=== PATIENT | male | born 1945 | race Caucasian/White ===

== ENCOUNTER 2017-05-27 16:02 | Outpatient (CLI) | payer MEDICARE, OTHER | END 2017-05-27 16:03 | disposition home or self-care (01) | LOC: LABBT 16:02 | PROVIDERS: ATTEND Urology | DX: Z01.818 Encounter for other preprocedural examination (principal); N40.0 Benign prostatic hyperplasia without lower urinary tract symptoms ==

== ENCOUNTER 2017-06-02 05:51 | Day surgery (SDC) | payer MEDICARE, OTHER ==
[2017-05-27 16:17] VITALS: BMI 27.8
[2017-06-02] MEDS ORDERED: Levofloxacin 500 mg/D5W 100 ml Premix Bag ONE (06:14)
[2017-06-02] MEDS ORDERED: Fentanyl 250 MCG/5 ML VIAL ONE (07:21)
[2017-06-02] MEDS ORDERED: B & O ONE (08:05)
[2017-06-02] MEDS ORDERED: Furosemide 20 MG/2 ML VIAL ONE (08:06)
[2017-06-02] MEDS ORDERED: Fentanyl 100 MCG/2 ML VIAL ONE (10:01)
[2017-06-02] MEDS ORDERED: Ondansetron HCl/PF 4 MG/2 ML Vial IVP PRN (10:09)
[2017-06-02] MEDS ORDERED: Promethazine HCl 25 MG/ML VIAL IM/IV PRN (10:09)
[2017-06-02] MEDS ORDERED: Non-Formulary Medication 1 EACH PO PRN (10:09)
[2017-06-02] MEDS ORDERED: Glycopyrrolate 0.2 MG/ML 5 ML SYRINGE ONE (11:48)
[2017-06-02] MEDS ORDERED: Lidocaine 1% PF 5 ML VIAL ONE (11:48)
[2017-06-02] MEDS ORDERED: ePHEDrine/0.9% NaCl/PF SYRINGE 50 mg/10 ml ONE (11:48)
[2017-06-02] MEDS ORDERED: Propofol 200 MG/20 ML VIAL ONE (11:48)
[2017-06-02] MEDS ORDERED: PHENYLEPHRINE-NS 100 MCG/ML 10 ML SYRINGE ONE (11:48)
[2017-06-02] MEDS ORDERED: Ondansetron HCl/PF 4 MG/2 ML Vial ONE (11:48)
--- NOTE | 2017-06-02 14:13 | OP ---
DATE OF PROCEDURE: 06/02/2017 PREOPERATIVE DIAGNOSIS: Benign prostatic hypertrophy. POSTOPERATIVE DIAGNOSIS: Benign prostatic hypertrophy. PROCEDURE PERFORMED: GreenLight laser vaporization of the prostate with enucleation of the lateral l obes using 213,055 joules. COMPLICATIONS: None. SPECIMENS: Prostate. ESTIMATED BLOOD LOSS: Minimal. FINDINGS: Good stream noted after the scope removed significantly obstructing anterior portion near the veru and that was also taken down. INDICATIONS: The patient is a 71-year-old male who was found to have BPH and elected to have definit misael surgical therapy. DESCRIPTION OF PROCEDURE: The patient was brought to the room by anesthesia lying on the table in pereira pine position. After receiving general anesthetic, his legs were placed in lithotomy position. His perineum was prepped and draped in a usual sterile fashion. Using a 22.5 Macanese cystoscope and 30 de gree lens, it was traversed and the bladder inspected. It was a little bit difficult to get in beyon d the obstructing anterior component, which hung down just at the veru and the apical portion of the prostate, but maneuvering this, I was able to get in the bladder and inspect that the ureteral orific es were noted in normal position and preserved throughout the case. The bladder neck was elevated an d the middle lobe was taken down first at a power level of [address] down to the trigonal ridge, which was taken down to the bladder floor. The power level of 80 was used at the bladder neck and n ear the veru and any significant portion of the anterior that need to be resected at the prostate ape x. A power of 180 was used to the mid gland. Despite the relatively small size, the anterior portio n was the part that was most obstructing, but the lateral lobes were enucleated as they were noted to be coapting as well. When a significant portion had been removed, the scope was removed, a good str eam was noted. The scope was put back in, chips ensured to be evacuated and then at a minimum volume , hemostasis was ensured. There was some oozing at the veru, which typically tamponade with a Magaña catheter and since there was no significant active bleeding, I removed the scope and put a catheter b ack in. There was some immediate hematuria noted, so I did irrigate this prior to hooking it up back up to the bag and he was given both B&O and Lasix at the end of the case. The patient tolerated the procedure well and was then awakened and transferred to PACU in stable condition.
== END 2017-06-02 12:05 | disposition home or self-care (01) ==
LOC: SDC 05:51
PROVIDERS: ATTEND Urology
PROC: 0V508ZZ Destruction of Prostate, Via Natural or Artificial Opening Endoscopic (ICD-10-PCS; principal; 2017-06-02)
DX: N40.1 Benign prostatic hyperplasia with lower urinary tract symptoms (principal); R35.0 Frequency of micturition; R35.1 Nocturia; M19.90 Unspecified osteoarthritis, unspecified site; I10 Essential (primary) hypertension; E78.00 Pure hypercholesterolemia, unspecified; Z79.1 Long term (current) use of non-steroidal anti-inflammatories (NSAID); Z79.82 Long term (current) use of aspirin; Z79.899 Other long term (current) drug therapy; Z88.2 Allergy status to sulfonamides; Z91.013 Allergy to seafood; Z90.89 Acquired absence of other organs; Z96.643 Presence of artificial hip joint, bilateral; Z98.890 Other specified postprocedural states; Z87.891 Personal history of nicotine dependence
CPT/HCPCS: 88305; 96374; J1940; J1956; J2001; J2405; J2704; J3010

== ENCOUNTER 2019-02-21 07:49 | Outpatient (CLI) | payer MEDICARE, OTHER ==
--- NOTE | 2019-02-21 08:14 | RAD ---
2 view chest: 02/21/2019 COMPARISON: 07/30/2016 HISTORY: Dyspnea FINDINGS: Lungs are clear. Heart and mediastinal contours appear grossly unremarkable. 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 Stable mild pulmonary hyperinflation and mild increased linear interstitial density. IMPRESSION: No acute findings.
== END 2019-02-21 07:50 | disposition home or self-care (01) ==
LOC: RAD 07:49
PROVIDERS: ATTEND Internal Medicine Critical Care Medicine
DX: R06.00 Dyspnea, unspecified (principal)
CPT/HCPCS: 71046

== ENCOUNTER 2019-03-02 12:31 | Outpatient (CLI) | payer MEDICARE, OTHER ==
--- NOTE | 2019-03-04 08:14 | PFT ---
PATIENT HISTORY: HEIGHT: 71.5 WEIGHT: 200 SMOKER: NO HOW LON YRS PACKS PER DAY: 2 PRODUCTIVE COUGH: NO LUNG DISEASE: PHYSICIAN INTERPRETATION PFT data: 03/02/19 FEV1 and FVC are within normal limits. The FEV1 did increase after Bronchodilatation, but this is to be felt to be more of a affect of patient effort than actual reversibility. Total lung capacity and Residual Volume are normal. Gas exchange is moderately reduced. IMPRESSION: No evidence of obstruction or restriction on this test. Gas exchange is moderately decreased. Bulk Pallet Builder: MADDY Social Director: MADDY MAYO
== END 2019-03-02 12:32 | disposition home or self-care (01) ==
LOC: CP 12:31
PROVIDERS: ATTEND Internal Medicine Critical Care Medicine
DX: R06.00 Dyspnea, unspecified (principal)
CPT/HCPCS: 94060; 94727; 94729

== ENCOUNTER 2020-04-16 08:28 | Outpatient (CLI) | payer MEDICARE, OTHER ==
--- NOTE | 2020-04-16 11:23 | RAD ---
PA AND LATERAL CHEST: Date: 04/16/2020 HISTORY: Dyspnea. COMPARISON: 02/21/2019 study. FINDINGS: Heart size within normal limits. There is some interstitial scarring in the bases. No focal infiltrat misael process or pulmonary nodules. No pleural effusions. IMPRESSION: Mild chronic appearing lung change. POS: AMBROCIO
== END 2020-04-16 08:29 | disposition home or self-care (01) ==
LOC: BICRAD 08:28
PROVIDERS: ATTEND Internal Medicine Critical Care Medicine
DX: R06.00 Dyspnea, unspecified (principal); J84.9 Interstitial pulmonary disease, unspecified
CPT/HCPCS: 71046

== ENCOUNTER 2021-01-28 09:55 | Outpatient (CLI) | payer MEDICARE, OTHER ==
[2021-01-28 11:11] LABS: Mean Corpuscular HGB CONC 33.3 g/dL (32.0-36.0); Mean Corpuscular Hemoglobin 27.5 pg (27.0-33.0); Mean Corpuscular Volume 82.4 fl (81.2-95.1); Mean Platelet Volume 9.4 fl (7.4-10.4); Platelet Count 182 10x3/uL (150-450); RBC Distribution Width 14.3 % (11.5-14.5); White Blood Cell (WBC) Count 5.6 10x3/uL (3.5-10.5)
[2021-01-28 11:27] LABS: Anion Gap 10 mmol/L (10-20); BUN (Urea Nitrogen) 20 mg/dL (8.4-25.7); Calc. Creatinine Clearance 0 mL/min (70-130); Calcium 9.8 mg/dL (7.8-10.44); Carbon Dioxide 30 mmol/L (23-31); Chloride 106 mmol/L (98-107); Glucose 94 mg/dL (83-110); Sodium 142 mmol/L (136-145)
[2021-01-28 11:29] LABS: INR-International Normal Ratio 0.9; PTT 26.2 sec (22.0-33.0); Prothrombin Time 10.5 sec (9.5-12.1)
[2021-01-29 00:31] LABS: SARS-CoV-2 PCR by NAA Not Detected (NotDetected)
== END 2021-01-28 09:56 | disposition home or self-care (01) ==
LOC: LABBT 09:55
PROVIDERS: ATTEND Neurological Surgery
DX: Z01.812 Encounter for preprocedural laboratory examination (principal); M48.061 Spinal stenosis, lumbar region without neurogenic claudication; M51.26 Other intervertebral disc displacement, lumbar region; Z20.822 Contact with and (suspected) exposure to COVID-19
CPT/HCPCS: 80048; 85027; 85610; 85730; U0003; U0005

== ENCOUNTER 2021-01-31 10:33 | Day surgery (SDC) | payer MEDICARE, OTHER ==
[2021-01-30 11:29] VITALS: BMI 29.9
[2021-01-31] MEDS ORDERED: Bupivacaine PF 0.5% 30 ML VIAL ONE (11:39)
[2021-01-31] MEDS ORDERED: Thrombin 5000 UNITS/5 ML VIAL ONE (11:39)
[2021-01-31] MEDS ORDERED: Neomycin-Polymyxin 1 ML AMP ONE (11:39)
[2021-01-31] MEDS ORDERED: EPINEPHrine 1 MG/ML AMP ONE (11:39)
[2021-01-31] MEDS ORDERED: Fentanyl 100 MCG/2 ML VIAL ONE ×4 (12:07→17:01)
[2021-01-31] MEDS ORDERED: Midazolam HCl 2 mg/2 ml Vial ONE (12:25)
[2021-01-31] MEDS ORDERED: ePHEDrine 50 MG/ML VIAL ONE (12:37)
[2021-01-31] MEDS ORDERED: PHENYLEPHRINE-NS 100 MCG/ML 10 ML SYRINGE ONE (12:37)
[2021-01-31] MEDS ORDERED: PROPOFOL 200 MG/20 ML VIAL ONE (12:37)
[2021-01-31] MEDS ORDERED: Dexamethasone 20 MG/5 ML VIAL ONE (12:37)
[2021-01-31] MEDS ORDERED: Rocuronium Bromide 10 MG/ML (10ML VIAL) ONE (12:37)
[2021-01-31] MEDS ORDERED: Glycopyrrolate 0.2 MG/ML 5 ML SYRINGE ONE (12:37)
[2021-01-31] MEDS ORDERED: Ondansetron PF 4 MG/2 ML Vial ONE (12:37)
[2021-01-31] MEDS ORDERED: Lidocaine 1% PF 5 ML VIAL ONE (12:37)
[2021-01-31] MEDS ORDERED: Phenylephrine 10 MG/ML VIAL ONE (13:50)
[2021-01-31] MEDS ORDERED: SUGAMMADEX SODIUM 200 MG/2 ML VIAL ONE (15:41)
[2021-01-31] MEDS ORDERED: HYDROcodone/Acetaminophen 5/325 mg Tablet ONE (19:10)
== END 2021-01-31 20:55 | disposition home or self-care (01) ==
LOC: SDC 10:33
PROVIDERS: ATTEND Neurological Surgery
PROC: 0ST20ZZ Resection of Lumbar Vertebral Disc, Open Approach (ICD-10-PCS; principal; 2021-01-31)
PROC: 01NB0ZZ Release Lumbar Nerve, Open Approach (ICD-10-PCS; 2021-01-31)
DX: M48.061 Spinal stenosis, lumbar region without neurogenic claudication (principal); M51.16 Intervertebral disc disorders with radiculopathy, lumbar region; Z88.2 Allergy status to sulfonamides; Z91.013 Allergy to seafood; Z91.048 Other nonmedicinal substance allergy status; Z79.51 Long term (current) use of inhaled steroids; Z79.1 Long term (current) use of non-steroidal anti-inflammatories (NSAID); Z79.82 Long term (current) use of aspirin; Z79.899 Other long term (current) drug therapy; Z95.5 Presence of coronary angioplasty implant and graft; Z98.890 Other specified postprocedural states
CPT/HCPCS: 76000; J0171; J0690; J1100; J2250; J2370; J2405; J2704; J3010; J3370; J3490; S0020

== ENCOUNTER 2021-04-17 08:24 | Outpatient (CLI) | payer MEDICARE, OTHER | END 2021-04-17 08:25 | disposition home or self-care (01) | LOC: RAD 08:24 | PROVIDERS: ATTEND Internal Medicine Critical Care Medicine | DX: R06.00 Dyspnea, unspecified (principal) | CPT/HCPCS: 71046 ==

== ENCOUNTER 2021-06-26 10:37 | Outpatient (CLI) | payer MEDICARE, OTHER | END 2021-06-26 10:38 | disposition home or self-care (01) | LOC: NM 10:37 | PROVIDERS: ATTEND Specialist | DX: T84.84XA Pain due to internal orthopedic prosthetic devices, implants and grafts, initial encounter (principal) | CPT/HCPCS: 78315; A9503 ==

== ENCOUNTER 2022-04-24 09:47 | Outpatient (CLI) | payer MEDICARE, OTHER | END 2022-04-24 09:48 | disposition home or self-care (01) | LOC: RAD 09:47 | PROVIDERS: ATTEND Internal Medicine Critical Care Medicine | DX: R06.00 Dyspnea, unspecified (principal) | CPT/HCPCS: 71046 ==

== ENCOUNTER 2022-06-18 09:42 | Outpatient (CLI) | payer MEDICARE, OTHER ==
[2022-06-18 10:36] LABS: Hemoglobin 13.9 g/dL (13.5-17.5); Mean Corpuscular HGB CONC 33.9 g/dL (32.0-36.0); Mean Corpuscular Hemoglobin 28.4 pg (27.0-33.0); Mean Corpuscular Volume 83.8 fl (81.2-95.1); Mean Platelet Volume 10.5 fl (7.4-10.4); Platelet Count 194 10x3/uL (150-450); RBC Distribution Width 14.1 % (11.5-14.5); Red Blood Cell (RBC) Count 4.89 10x6/uL (4.32-5.72); White Blood Cell (WBC) Count 6.5 10x3/uL (3.5-10.5)
[2022-06-18 10:49] LABS: INR-International Normal Ratio 0.9; Prothrombin Time 10.3 sec (9.5-12.1)
[2022-06-18 10:58] LABS: Anion Gap 11 mmol/L (10-20); BUN (Urea Nitrogen) 27 mg/dL (8.4-25.7); Calc. Creatinine Clearance 0 mL/min (70-130); Calcium 9.4 mg/dL (7.8-10.44); Carbon Dioxide 28 mmol/L (23-31); Chloride 105 mmol/L (98-107); Estimated GFR 49; Glucose 92 mg/dL (83-110); Potassium 3.9 mmol/L (3.5-5.1); Sodium 140 mmol/L (136-145)
== END 2022-06-18 09:43 | disposition home or self-care (01) ==
LOC: LABBT 09:42
PROVIDERS: ATTEND Urology
DX: Z01.812 Encounter for preprocedural laboratory examination (principal); N32.0 Bladder-neck obstruction
CPT/HCPCS: 80048; 85027; 85610; 85730; 87086

== ENCOUNTER 2022-06-23 07:59 | Day surgery (SDC) | payer MEDICARE, OTHER ==
[2022-06-20 11:30] VITALS: BMI 28.5
[2022-06-23] MEDS ORDERED: Levofloxacin 500 mg/D5W 100 ml Premix Bag ONE (10:04)
[2022-06-23] MEDS ORDERED: Ondansetron PF 4 MG/2 ML Vial ONE ×2 (10:05→10:11)
[2022-06-23] MEDS ORDERED: Famotidine/PF 20 mg/2ml Vial ONE (10:05)
[2022-06-23] MEDS ORDERED: Metoclopramide HCl 10 MG/2 ML VIAL ONE ×2 (10:05→10:11)
[2022-06-23] MEDS ORDERED: FENTANYL 50 MCG/ML 1 ML VIAL ONE (10:06)
[2022-06-23] MEDS ORDERED: Glycopyrrolate 0.2 MG/ML 5 ML SYRINGE ONE (10:11)
[2022-06-23] MEDS ORDERED: ePHEDrine 50 MG/ML VIAL ONE (10:11)
[2022-06-23] MEDS ORDERED: Lidocaine 1% PF 5 ML VIAL ONE (10:11)
[2022-06-23] MEDS ORDERED: PROPOFOL 200 MG/20 ML VIAL ONE (10:11)
[2022-06-23] MEDS ORDERED: PHENYLEPHRINE-NS 100 MCG/ML 10 ML SYRINGE ONE (10:11)
[2022-06-23] MEDS ORDERED: Dexamethasone 20 MG/5 ML VIAL ONE (10:11)
== END 2022-06-23 13:10 | disposition home or self-care (01) ==
LOC: SDC 07:59
PROVIDERS: ATTEND Urology
PROC: 0TNC8ZZ Release Bladder Neck, Via Natural or Artificial Opening Endoscopic (ICD-10-PCS; principal; 2022-06-23)
PROC: 0TCB8ZZ Extirpation of Matter from Bladder, Via Natural or Artificial Opening Endoscopic (ICD-10-PCS; 2022-06-23)
DX: N21.0 Calculus in bladder (principal); N21.1 Calculus in urethra; N32.0 Bladder-neck obstruction; I10 Essential (primary) hypertension; Z79.1 Long term (current) use of non-steroidal anti-inflammatories (NSAID); Z79.82 Long term (current) use of aspirin; Z79.899 Other long term (current) drug therapy; Z88.2 Allergy status to sulfonamides; Z91.013 Allergy to seafood; Z91.048 Other nonmedicinal substance allergy status
CPT/HCPCS: 52317; 53899; 82365; J3010; 88300; J1100; J1956; J2405; J2704; J2765; J3490; S0028

== ENCOUNTER 2022-12-18 09:11 | Outpatient (CLI) | payer MEDICARE, OTHER | END 2022-12-18 09:12 | disposition home or self-care (01) | LOC: BICCT 09:11 | PROVIDERS: ATTEND Family Medicine | DX: K40.90 Unilateral inguinal hernia, without obstruction or gangrene, not specified as recurrent (principal); K42.9 Umbilical hernia without obstruction or gangrene; N28.1 Cyst of kidney, acquired; K57.30 Diverticulosis of large intestine without perforation or abscess without bleeding | CPT/HCPCS: 74178; 82565 ==

== ENCOUNTER 2023-01-15 21:44 | Emergency (ER) | payer MEDICARE, OTHER | END 2023-01-16 03:51 | disposition home or self-care (01) | LOC: ERS 21:44 | PROC: 0YU64JZ Supplement Left Inguinal Region with Synthetic Substitute, Percutaneous Endoscopic Approach (ICD-10-PCS; principal; 2023-01-15) | DX: R33.9 Retention of urine, unspecified (principal); I10 Essential (primary) hypertension; Z79.899 Other long term (current) drug therapy; K40.90 Unilateral inguinal hernia, without obstruction or gangrene, not specified as recurrent; M19.90 Unspecified osteoarthritis, unspecified site; E78.00 Pure hypercholesterolemia, unspecified; N40.0 Benign prostatic hyperplasia without lower urinary tract symptoms; Z87.891 Personal history of nicotine dependence; Z88.2 Allergy status to sulfonamides | CPT/HCPCS: 49650; 72170; 99283; C1781; J2405; J2704; J3490 ==